=== PATIENT | female | born 1955 | race Caucasian/White ===

== ENCOUNTER 2018-01-08 08:53 | Day surgery (SDC) | payer OTHER ==
--- NOTE | 2018-01-05 11:48 | HP ---
DATE OF SURGERY: 01/08/2018 ANTICIPATED PROCEDURE: EGD and colonoscopy. HISTORY OF PRESENT ILLNESS: The patient presents for ten year follow up colonoscopic examination. She also has upper abdominal pain, some symptoms of reflux have not been evaluated and presents for both colonoscopy and EGD. PAST MEDICAL HISTORY: ALLERGIES: PER THE CHART. MEDICATIONS: Per the chart. PAST SURGICAL HISTORY: Previous cholecystectomy. SOCIAL HISTORY: Negative. FAMILY HISTORY: Negative. PHYSICAL EXAMINATION: VITAL SIGNS: Normal. CHEST: Clear. COR: Regular. ABDOMEN: No palpable organomegaly or mass. IMPRESSION: The patient has upper symptoms requiring EGD and a ten year follow up colonoscopy.
[~2018-01-08 08:53] MED LIST: Lactated Ringers 1,000 ML IV ONE; Lactated Ringers 1,000 ML IV SCH
[2018-01-08] MEDS ORDERED: SUBLIMAZE 100 MCG/2 ML IV ONE (08:54)
[2018-01-08] MEDS ORDERED: VERSED 5 MG/5 ML IV ONE (08:54)
[2018-01-08] MEDS ORDERED: DEMEROL 50 MG SDV IV ONE (08:54)
[2018-01-08] MEDS ORDERED: Lactated Ringers 1,000 ML IV ONE (12:26)
[2018-01-08 13:54] VITALS: O2SAT 100
--- NOTE | 2018-01-08 13:58 | OP ---
SURGERY DATE/TIME: 01/08/2018 1148 PREOPERATIVE DIAGNOSES: 1) Epigastric pain and nausea. 2) Screening lower exam with previous history of polyp. POSTOPERATIVE DIAGNOSES: 1) Epigastric pain and nausea. 2) Screening lower exam with previous history of polyp. PROCEDURES: 1) Colonoscopy complete to cecum with no mucosal lesions. 2) EGD with just very mild 1/3 gastroesophageal reflux disease. SURGEON: Jhonny Hernandez M.D. ANESTHESIA: IV sedation 15 minutes monitored. COMPLICATIONS: None. CONDITION: Stable. INDICATION: A patient with frequent nausea, epigastric discomfort. She had a scope about ten years ago and she had a polyp. She presents for screening today and evaluation of her upper system. DESCRIPTION OF PROCEDURE: IV sedation titrated. Oximeter kept over 90%. Scope introduced. The esophagus normal down gastroesophageal junction. There was some probably intermittent very mild esophagitis, none currently but there was a little after effect scarring. Fundus, body, antrum normal. Pylorus normal. Duodenal bulb normal. Second portion normal. Scope withdrawn and looped upon itself. No hiatal hernia. Scope withdrawn. The colonoscope is placed. Anal tone normal. Scope advanced over to the cecum. Base of the cecum, ileocecal valve, appendiceal orifice normal. Ascending, hepatic, transverse, splenic, descending, sigmoid, rectum, anus was normal. IMPRESSION: Normal examination. PLAN: Follow up in ten years. Findings discussed with the in the waiting room.
[2018-01-08 14:10] VITALS: BP 142/78; PULSE 78
== END 2018-01-08 14:15 | disposition home or self-care (01) ==
LOC: SDC 08:53
PROVIDERS: ATTEND Surgery
DX: R10.13 Epigastric pain (principal); Z86.010 Personal history of colon polyps; Z12.11 Encounter for screening for malignant neoplasm of colon; R11.0 Nausea
CPT/HCPCS: J2175; J2250; J3010

== ENCOUNTER 2019-05-27 06:51 | Day surgery (SDC) | payer OTHER ==
--- NOTE | 2019-05-24 10:20 | HP ---
DATE OF SURGERY: 05/27/2019 ANTICIPATED PROCEDURE: EGD. HISTORY OF PRESENT ILLNESS: A patient with epigastric pain and is markedly worse. She is requiring evaluation. She presents for EGD. PAST MEDICAL HISTORY: ALLERGIES: PER THE CHART. MEDICATIONS: Per the chart. PAST SURGICAL HISTORY: None recent. SOCIAL HISTORY: Negative. FAMILY HISTORY: Negative. REVIEW OF SYSTEMS: CVS: Negative. PULMONARY: Negative. GI: She does have a history of reflux disease. PHYSICAL EXAMINATION: VITAL SIGNS: Normal. CHEST: Clear. COR: Regular. ABDOMEN: Satisfactory. PLAN: EGD.
[~2019-05-27 06:51] MED LIST changes: -Lactated Ringers 1,000 ML IV ONE
[2019-05-27] MEDS ORDERED: Lactated Ringers 1,000 ML IV ONE (07:25)
[2019-05-27] MEDS ORDERED: DIPRIVAN 200 MG/20 ML IV ONE ×2 (09:22→09:33)
[2019-05-27 10:34] VITALS: O2SAT 95
[2019-05-27 10:53] VITALS: BP 157/93; PULSE 79
--- NOTE | 2019-05-27 11:10 | OP ---
SURGERY DATE/TIME: 05/27/2019 0921 PREOPERATIVE DIAGNOSES: 1) Abdominal pain. 2) Epigastric pain. POSTOPERATIVE DIAGNOSES: 1) Chronic gastroesophageal reflux disease. There is no acute activation at this time but it looks like there is some spasm and there has been some chronic disease but there is no acute inflammation or ulceration. The diameter widens out satisfactorily with insufflation. 2) The patient had three gastric polyps. PROCEDURE: EGD with cold polypectomy x3 and cold biopsy for MARGE-test x1. SURGEON: Jhonny Hernandez M.D. ANESTHESIA: MAC. COMPLICATIONS: None. CONDITION: Stable. INDICATION: A 64 year-old with abdominal pain, epigastric pain, not had an upper endoscopic examination. She had a colonoscopy some time ago. DESCRIPTION OF PROCEDURE: She was taken to endoscopy. Left lateral decubitus position. MAC sedation provided. The scope introduced. Pharyngoesophageal junction is normal. Esophagus is normal down to gastroesophageal junction. There has certainly been some old gastroesophageal reflux disease but there is nothing acute or active present. In the fundus there are polyps. Body and antrum satisfactory. [employer] biopsy for MARGE-test from the antrum. Duodenal bulb satisfactory. Second portion satisfactory. Scope looped upon itself. No hiatal hernia. Three polyps in the upper fundus were taken with cold biopsy forceps. The patient tolerated the procedure satisfactorily.
== END 2019-05-27 10:55 | disposition home or self-care (01) ==
LOC: SDC 06:51
PROVIDERS: ATTEND Surgery
DX: K21.9 Gastro-esophageal reflux disease without esophagitis (principal); R10.13 Epigastric pain; K22.4 Dyskinesia of esophagus; K31.7 Polyp of stomach and duodenum
CPT/HCPCS: 87081; 88305; J2704

== ENCOUNTER 2020-02-11 19:56 | Emergency (ER) | payer OTHER ==
[2020-02-11] MEDS ORDERED: NORCO 5/325 MG PO ONE (20:15)
[2020-02-11] MEDS ORDERED: BACIGUENT 30 GM TP STA (20:17)
--- NOTE | 2020-02-11 20:18 | ERPHSYRPT ---
- History of Present Illness Time Seen by Provider: 02/11/20 20:10 Source: patient Exam Limitations: no limitations Physician History: The patient is a 64-year-old [id number] female with a past medical history significant for hypertension and a documented Tdap in 2017 presents with a chief complaint of right elbow pain after mechanical fall that took place an estimated 30 minutes to an hour prior to arrival. She reportedly tripped and fell down some concrete steps resulted in injury. She denies loss of consciousness and since the fall, she is able to ambulate, specifically on her right lower extremity. In addition to pain to her right elbow she complained of some abrasions to the right lateral aspect of her leg in addition to the minor bleeding that resolved to the right thigh at a time she arrived to the emergency department. The pain is described as an aching pain and increases with palpation of the right elbow and flexion extension of the elbow as well as supination and pronation of the right hand. Her pain is primarily located over the radial head. She denies any numbness/paresthesias. The patient does not take any anticoagulants and denies any head injury or neck pain. Occurred: just prior to arrival Quality: constant Severity of Pain-Max: moderate Severity of Pain-Current: moderate Extremities Pain Location: elbow: right Modifying Factors: Improves With: movement Allergies/Adverse Reactions: Latex, Natural Rubber Allergy (Intermediate, Verified 02/11/20 20:05) Rash levofloxacin [From Levaquin] Allergy (Intermediate, Verified 02/11/20 20:05) Vomiting Penicillins Allergy (Intermediate, Verified 02/11/20 20:05) Rash Sulfa (Sulfonamide Antibiotics) Allergy (Intermediate, Verified 02/11/20 20:05) Vomiting shellfish derived Allergy (Verified 02/11/20 20:05) strawberry Allergy (Verified 02/11/20 20:05) azithromycin [From Zithromax Z-Tariq] Adverse Reaction (Intermediate, Verified 02/11/20 20:05) Vomiting cephalexin monohydrate [From Keflex] Adverse Reaction (Intermediate, Verified 02/11/20 20:05) Vomiting Home Medications: Raloxifene HCl 60 mg [Evista 60 MG] 60 mg PO UD 12/03/12 [History] Zolpidem Tartrate 5 mg [Ambien 5 MG Tablet] 5 mg PO HS 12/03/12 [History] Omeprazole 20 MG [Prilosec 20 mg] 20 mg PO DAILY PRN 12/29/17 [History] Vitamin B Complex 1 tab PO DAILY 12/29/17 [History] Alprazolam 0.25 mg [xanAX 0.25 MG] 0.25 mg PO DAILY 05/18/19 [History] Diltiazem HCl [Cardizem] 120 mg PO DAILY 05/18/19 [History] Losartan Potassium [Cozaar] 100 mg PO DAILY 05/18/19 [History] Metformin HCl 500 mg [Glucophage 500 MG] 500 mg PO BIDWM 05/18/19 [History] Potassium Chloride 20 meq PO DAILY 05/18/19 [History] Venlafaxine HCl 37.5 mg [Effexor 37.5 mg] 37.5 mg PO DAILY 05/18/19 [History] Hx Influenza Vaccination/Date Given: No Hx Pneumococcal Vaccination/Date Given: No Travel Risk - International Travel Have you traveled outside of the country in past 3 weeks: No - Coronavirus Screening Are you exhibiting any of the following symptoms?: No Close contact with a COVID-19 positive Pt in past 14-21 Days: No - Review of Systems Constitutional: No Symptoms Eyes: No Symptoms Ears, Nose, & Throat: No Symptoms Respiratory: No Symptoms Cardiac: No Symptoms Abdominal/Gastrointestinal: No Symptoms Musculoskeletal: Fall, Injury, Joint Pain, No Deformity Skin: Other (Abrasions) Neurological: No Symptoms Psychological: No Symptoms Endocrine: No Symptoms Hematologic/Lymphatic: No Symptoms Immunological/Allergic: No Symptoms All Other Systems: Reviewed and Negative - Past Medical History Pertinent Past Medical History: Yes Neurological History: No Pertinent History ENT History: No Pertinent History Cardiac History: Hypertension Respiratory History: No Pertinent History Endocrine Medical History: No Pertinent History Musculoskeletal History: Fractures GI Medical History: GERD History: No Pertinent History Psycho-Social History: No Pertinent History Female Reproductive Disorders: No Pertinent History Other Medical History: Avulsion < 10 years ago - Past Surgical History Past Surgical History: Yes Neuro Surgical History: No Pertinent History Cardiac: No Pertinent History Respiratory: No Pertinent History Gastrointestinal: Cholecystectomy Genitourinary: No Pertinent History Musculoskeletal: No Pertinent History Female Surgical History: Hysterectomy Other Surgical History: colonoscopy - Social History Smoking Status: Former smoker Exposure to second hand smoke: No Drug Use: none - Nursing Vital Signs Nursing Vital Signs: Initial Vital Signs Pulse Rate 90 02/11/20 19:57 Respiratory Rate 18 02/11/20 19:57 Blood Pressure 166/99 02/11/20 19:57 O2 Sat by Pulse Oximetry 100 02/11/20 19:57 Pain Scale Pain Intensity 5 - Physical Exam General Appearance: no apparent distress Eyes, Ears, Nose, Throat Exam: normal ENT inspection Neck Exam: normal inspection, non-tender, supple Cardiovascular/Respiratory Exam: chest non-tender, normal breath sounds, regular rate/rhythm, heart sounds normal, normal peripheral pulses (Radial pulse 2+ b ilaterally and capillary refill was brisk in all fingers of the hands) Abdominal Exam: non-tender Back Exam: normal inspection Shoulder Exam: normal inspection, non-tender, no evidence of injury, normal ROM, No asymmetry, No deformity, No pain, No soft tissue tenderness, No swelling Elbow/Forearm Exam: bone tenderness, pain, soft tissue tenderness (Tenderness noted to the R elbow specifically of the R radial head. No crepitus of deformity to the R elbow and pain with flexion and extension as well as pronation and supination. ), No ecchymosis Wrist Exam: normal inspection, non-tender, no evidence of injury, normal ROM, No abrasions, No deformity Hand Exam: normal inspection, non-tender, no evidence of injury, normal ROM, No abrasions, No deformity, No limited ROM, No nail injury, No soft tissue tenderness, No swelling Neuro/Tendon Exam: normal sensation, normal motor functions, No sensory deficit, No tendon function deficit Mental Status Exam: alert, oriented x 3, cooperative, other (GCS 15) Skin Exam: normal color, warm, dry, other (Superfical abrasion noted to the R thigh with evidence of venous bleeding that has resolved with surrounding contusion and abrasions noted to the lateral aspect of the R leg.), No rash, No petechiae, No jaundice, No cyanosis, No diaphoresis SpO2 Interpretation: normal O2 Delivery: Room Air Procedures - Splinting Location of Splint: Right Type of Splint: Other (Sling) Splint Applied By: ED Nurse Pre-Proc Neuro Vasc Exam: normal Post-Proc Neuro Vasc Exam: neurovascular intact - Course Nursing assessment & vital signs reviewed: Yes - Radiology Exams Elbow X-ray Interpretation: Interpreted by me, Reviewed by me, Other (Radial head/neck fracture, nondisplaced) Ordered Tests: Active Orders 24 hr Category Date Time Status Sling Application STAT Care 02/11/20 20:16 Completed Wound Care STAT Care 02/11/20 20:16 Completed ELBOW (MINIMUM 3 VIEWS) Stat Exams 02/11/20 20:14 Completed Medication Summary Discontinued Medications Generic Name Dose Route Start Last Admin Trade Name Dev PRN Reason Stop Dose Admin Hydrocodone Bitart/Acetaminophen 2 tab 02/11/20 20:15 02/11/20 20:21 [place] 5/325 Mg PO 02/11/20 20:16 2 tab STAT ONE Administration Hydrocodone Bitart/Acetaminophen Confirm 02/11/20 20:21 [place] 5/325 Mg Administered 02/11/20 20:22 Dose 2 tab .ROUTE .STK-MED ONE Bacitracin Zinc 1 gm 02/11/20 20:17 02/11/20 21:07 [place]ig[place] 30 Gm TP 02/11/20 20:18 1 gm ONCE STA Administration Bacitracin Zinc Confirm 02/11/20 20:20 [place]ig[place] Packet Administered 02/11/20 20:21 Dose 1 gm .ROUTE .STK-MED ONE - Progress Progress: improved Progress Note: 02/11/20 20:28 Toxic in appearance. The patient presents with a chief complaint of right elbow pain after mechanical fall. She has no evidence of head injury and she has tenderness mainly at the radial head aspect of the right elbow. I will go ahead and obtain an x-ray of the right elbow to rule out evidence of fracture and/or dislocation. I currently have a high suspicion for a nondisplaced fracture of the radial head at this time and if such is present she will be discharged to follow-up in the Ortho clinic as an outpatient and given a sling for immobilization and comfort. In the meantime, her wounds will be cleaned and bacitracin will be applied to the wound to the right thigh. It appears she had a Tdap in 2017 and does not need this updated. Counseled pt/family regarding: diagnosis, need for follow-up, rad results - Departure Departure Disposition: Home Clinical Impression: Fracture of radial neck, right, closed, Abrasion, right lower leg, initial encounter, Fall Condition: Stable Critical Care Time: No Referrals: NATACHA CR [Primary Care Provider] - ORTHO - FABIANA SABA NP [NON-STAFF PHY W/O PRIVILEGES] - Instructions: Radius Fracture, How to Use a Shoulder Sling Additional Instructions: Follow-up in the outpatient orthopedic clinic. This is a walk-in clinic and he can show up on scheduled at any time. Prescriptions: Hydrocodone/APAP 5-325 Tab^^^ [[place] 5-325 Tablet^^^] 1 - 2 tab PO Q6HPRN PRN #16 tablet MDD 6 PRN Reason: Pain Docusate Sodium 100 mg PO BID #60 capsule
[2020-02-11] MEDS ORDERED: BACIGUENT PACKET ONE (20:20)
[2020-02-11] MEDS ORDERED: NORCO 5/325 MG ONE (20:21)
[2020-02-11 21:15] VITALS: BP 150/88; PULSE 84
[2020-02-11 21:44] VITALS: O2SAT 96
--- NOTE | 2020-02-11 22:46 | XRAY ---
: Pain following fall. Comparison: None 3 view right elbow demonstrates tiny radial head cortical fracture, anterior lateral aspect. Small medial epicondyle heterotopic ossification either degenerative versus old injury. No other bony, articular, or soft tissue abnormalities.
== END 2020-02-11 21:48 | disposition home or self-care (01) ==
LOC: ED 19:56
DX: S52.131A Displaced fracture of neck of right radius, initial encounter for closed fracture (principal); S80.811A Abrasion, right lower leg, initial encounter; W01.198A Fall on same level from slipping, tripping and stumbling with subsequent striking against other object, initial encounter; Y93.9 Activity, unspecified; Y92.9 Unspecified place or not applicable; M25.521 Pain in right elbow; Z79.899 Other long term (current) drug therapy; I10 Essential (primary) hypertension
CPT/HCPCS: 73080; 99284; A9270-GY

== ENCOUNTER 2022-09-05 06:56 | Day surgery (SDC) | payer MEDICARE ==
--- NOTE | 2022-09-04 10:40 | HP ---
DATE OF SURGERY: 09/05/2022 HISTORY OF PRESENT ILLNESS: The patient is a 67-year-old woman presents for endoscopy. She complains of some hemorrhoids. She has been having some change in the bowel habits. She complains of some diarrhea and constipation. It looks like the patients last colonoscopy was about five years ago. PAST MEDICAL HISTORY: Hypertension, anxiety, depression, hyperlipidemia. PAST SURGICAL HISTORY: Cholecystectomy. Appendectomy. Hysterectomy. Bilateral tubal ligation. D&C. Lumpectomy. ALLERGIES: LEVAQUIN. PENICILLIN. SULFA. AZITHROMYCIN. CEPHALEXIN. LATEX. SHELLFISH. STRAWBERRY. MEDICATIONS: Vitamin C, vitamin D3, vitamin B, probiotic, Xanax, Effexor, aspirin, Ambien, losartan, carvedilol, amlodipine, Evista. FAMILY HISTORY: Alzheimer's. Lung cancer. Testicular cancer. SOCIAL HISTORY: Former smoker. Occasional alcohol. REVIEW OF SYSTEMS: CONSTITUTIONAL: Denies fever or chills. CHEST: Denies shortness of breath. CVS: Denies chest pain. ABDOMEN: Denies abdominal pain. PHYSICAL EXAMINATION: GENERAL: No acute distress. CHEST: Nonlabored. No shortness of breath. CVS: Regular rate and rhythm. ABDOMEN: Soft. IMPRESSION: Screening. PLAN: Colonoscopy with Dr. Jhonny Hernandez. As dictated by Leah Stern NP.
[2022-09-05] MEDS ORDERED: Lactated Ringers 1,000 ML IV SCH (07:30)
[2022-09-05] MEDS ORDERED: Lactated Ringers 1,000 ML IV ONE (07:40)
[2022-09-05] MEDS ORDERED: DIPRIVAN 200 MG/20 ML IV ONE (08:42)
[2022-09-05] MEDS ORDERED: Xylocaine-Mpf 2% 5 Ml Vial ONE (08:42)
[2022-09-05] MEDS ORDERED: Versed 2 MG/2 ML Injection ONE (08:43)
[2022-09-05] MEDS ORDERED: GlucaGen 1 MG ONE (09:20)
[2022-09-05 09:43] VITALS: O2SAT 971
[2022-09-05 09:54] VITALS: BP 148/93; PULSE 83
--- NOTE | 2022-09-05 14:05 | OP ---
SURGERY DATE/TIME: 09/05/2022 0912 PREOPERATIVE DIAGNOSIS: Five year follow up of polyp. POSTOPERATIVE DIAGNOSIS: A 6 mm mid sigmoid polyp. PROCEDURES: 1) Colonoscopy complete to cecum. 2) Hot polypectomy x1. SURGEON: Jhonny Hernandez M.D. ANESTHESIA: MAC. COMPLICATIONS: None. CONDITION: Stable. INDICATION: The patient presents for five year follow up. DESCRIPTION OF PROCEDURE: Taken to endoscopy. Left lateral decubitus position. Anal digital examination is satisfactory. Scope introduced. The scope advanced to the cecum. Base of the cecum, ileocecal valve and appendiceal stump were all present and normal. Coming back the ascending colon, hepatic, transverse, splenic, descending and the mid sigmoid a 6 mm polyp taken with hot biopsy forceps. Rectum and anus normal. IMPRESSION: A very wholesome quality of the colon. Length was satisfactory. General width was excellent. General character was excellent. PLAN: Five year follow up. Excellent prep was present.
== END 2022-09-05 09:55 | disposition home or self-care (01) ==
LOC: SDC 06:56
PROVIDERS: ATTEND Surgery
DX: Z09 Encounter for follow-up examination after completed treatment for conditions other than malignant neoplasm (principal); Z86.010 Personal history of colon polyps; K63.5 Polyp of colon; Z79.899 Other long term (current) drug therapy; Z80.1 Family history of malignant neoplasm of trachea, bronchus and lung
CPT/HCPCS: 82947; J1610; J2250; J2704

== ENCOUNTER 2024-06-07 17:35 | Emergency (ER) | payer MEDICARE ==
[2024-06-07 18:23] VITALS: PULSE 83; RESP 18; O2SAT 97
[2024-06-07 19:34] VITALS: BP 178/93
[2024-06-07] MEDS: Vibramycin 100 MG PO ONE (19:53)
[2024-06-07] MEDS ORDERED: Vibramycin 100 MG ONE (19:53)
--- NOTE | 2024-06-07 19:57 | ERPHSYRPT ---
- History of Present Illness Time Seen by Provider: 06/07/24 19:15 Source: patient Exam Limitations: no limitations Patient Subjective Stated Complaint: C/O laceration to second digit of right hand. States she cut herself with her dog grooming scissors right before coming into the ER this evening. Triage Nursing Assessment: Patient ambulated back to ER without difficulties. She is alert and oriented. Laceration is present to right hand, tip of second digit. No active bleeding. Measures 0.5cm. Physician History: This is a left handed 69-year-old white female patient of Dr. Hoover who arrives by private vehicle with a right second digit tip of finger skin laceration/flap. This occurred prior to arrival. She was using dog grooming scissors. She denies pain. Her tetanus status is up-to-date. Patient has a h istory gastroesophageal reflux disease, hypertension, anxiety and depression. Patient also would like to have antibiotics. Specifically, she can take doxycycline. Timing/Duration: today Severity: mild Location: hands (Right hand tip of second digit) Allergies/Adverse Reactions: Latex, Natural Rubber Allergy (Intermediate, Verified 06/07/24 18:16) Rash levofloxacin [From Levaquin] Allergy (Intermediate, Verified 06/07/24 18:16) Vomiting Penicillins Allergy (Intermediate, Verified 06/07/24 18:16) Rash Sulfa (Sulfonamide Antibiotics) Allergy (Intermediate, Verified 06/07/24 18:16) Vomiting shellfish derived Allergy (Verified 06/07/24 18:16) strawberry Allergy (Verified 06/07/24 18:16) azithromycin [From Zithromax Z-Tariq] Adverse Reaction (Intermediate, Verified 06/07/24 18:16) Vomiting cephalexin monohydrate [From Keflex] Adverse Reaction (Intermediate, Verified 06/07/24 18:16) Vomiting Home Medications: Raloxifene HCl 60 mg [Evista 60 MG] 60 mg PO UD 12/03/12 [History] Zolpidem Tartrate 5 mg [Ambien 5 MG Tablet] 10 mg PO HS 12/03/12 [History] Omeprazole 20 MG [Prilosec 20 mg] 40 mg PO DAILY PRN 12/29/17 [History] ALPRAZolam 0.25 MG [xanAX 0.25 MG] 0.25 mg PO DAILY PRN PRN 05/18/19 [History] Losartan Potassium [Cozaar] 100 mg PO DAILY 05/18/19 [History] Potassium Chloride 20 meq PO DAILY 05/18/19 [History] Venlafaxine HCl 37.5 mg [Effexor 37.5 mg] 75 mg PO DAILY 05/18/19 [History] Amlodipine Besylate 5 mg [Norvasc 5 mg] 2.5 mg PO DAILY 08/12/22 [History] Carvedilol 12.5 mg [Coreg 12.5 mg] 12.5 mg PO BID 08/12/22 [History] Fluticasone Propionate [Flonase NASAL] 1 spray INTRANASAL UD 08/12/22 [ History] Semaglutide [Ozempic] 50 mg IM WEEKLY 08/12/22 [History] Hx Tetanus, Diphtheria Vaccination/Date Given: Yes Hx Influenza Vaccination/Date Given: No Hx Pneumococcal Vaccination/Date Given: No Immunizations Up to Date: Yes Travel Risk - International Travel Have you traveled outside of the country in past 3 weeks: No - Emerging Infectious Disease Are you exhibiting symptoms associated with any current EIDs: No - Review of Systems Constitutional: No Symptoms Eyes: No Symptoms Ears, Nose, & Throat: No Symptoms Respiratory: No Symptoms Cardiac: No Symptoms Abdominal/Gastrointestinal: No Symptoms Genitourinary Symptoms: No Symptoms Musculoskeletal: No Symptoms Skin: Other (Small flap/laceration right hand second digit tip of finger) Neurological: No Symptoms Psychological: No Symptoms Endocrine: No Symptoms Hematologic/Lymphatic: No Symptoms Immunological/Allergic: No Symptoms All Other Systems: Reviewed and Negative - Past Medical History Pertinent Past Medical History: Yes Neurological History: No Pertinent History ENT History: No Pertinent History Cardiac History: Hypertension Respiratory History: Sleep Apnea Endocrine Medical History: No Pertinent History Musculoskeletal History: Fractures GI Medical History: GERD History: No Pertinent History Psycho-Social History: Anxiety, Other Female Reproductive Disorders: No Pertinent History Other Medical History: Avulsion, cpap at night - Past Surgical History Past Surgical History: Yes Neuro Surgical History: No Pertinent History Cardiac: No Pertinent History Respiratory: No Pertinent History Gastrointestinal: Cholecystectomy Genitourinary: No Pertinent History Musculoskeletal: Orthopedic Surgery Female Surgical History: Hysterectomy, Lumpectomy Other Surgical History: colonoscopy, acl repair r knee 2020--[facility] - Social History Smoking Status: Former smoker Exposure to second hand smoke: No Drug Use: none Patient Lives Alone: No - Social Determinants of Health Will the patient participate in the screening: Yes Do you worry about a steady place to live?: No Do you have any problems with any of the following?: No known problems In the past 12 months,have you had to go without utilities?: No Transportation Issues: No Has anyone in your support network made you feel unsafe?: No Have you or anyone in your house had to go without enough: No - Nursing Vital Signs Nursing Vital Signs: Initial Vital Signs Pulse Rate 83 06/07/24 18:16 Respiratory Rate 18 06/07/24 18:16 Blood Pressure 168/104 06/07/24 18:16 O2 Sat by Pulse Oximetry 97 06/07/24 18:16 Pain Scale Pain Intensity 8 - Physical Exam General Appearance: no apparent distress, alert Eye Exam: PERRL/EOMI, eyes nml inspection Ears, Nose, Throat Exam: normal ENT inspection, moist mucous membranes Neck Exam: normal inspection, non-tender, supple, full range of motion Respiratory Exam: airway intact, No chest tenderness, No respiratory distress Gastrointestinal/Abdomen Exam: No tenderness Pelvic Exam: not done Rectal Exam: not done Back Exam: normal inspection, normal range of motion, No CVA tenderness, No vertebral tenderness Extremity Exam: normal range of motion, pelvis stable, lacerations (1/2 cm skin flap/laceration right hand tip of second digit) Neurologic Exam: alert, oriented x 3, cooperative, associate store manager II-XII nml as tested, normal mood/affect, nml cerebellar function, nml station & gait, sensation nml Skin Exam: normal color, warm, dry, laceration (See above extremity exam section) Lymphatic Exam: No adenopathy SpO2 Interpretation: normal SpO2: 97 O2 Delivery: Room Air Procedures - Laceration/Wound Repair Right Distal Finger Time of Procedure: 19:20 Wound Location: Right, hand (Right hand tip of second digit) Wound Length (cm): 0.5 Wound's Depth, Shape: superficial, linear Wound Explored: clean (Wound was explored to the base in a bloodless field and no foreign body is noted) Irrigated: Yes Hibiclens Prep: Yes Wound Repaired With: Steri-strips, Dermabond Progress: 06/07/24 19:56 No complications. Patient tolerated the procedure well. Ordered Tests: Medication Summary Discontinued Medications Generic Name Dose Route Start Last Admin Trade Name Dev PRN Reason Stop Dose Admin Doxycycline Hyclate 100 mg 06/07/24 19:50 Doxycycline Hyclate 100 Mg Tablet PO 06/07/24 19:51 STAT ONE - Progress Progress Note: 06/07/24 19:56 My medical decision making and the assignment of low complexity to this patient's medical issue today is based on review of the patient's past medical history, review the patient's medication list, reviewed patient drug allergy list, history present illness and physical findings on examination. No laboratory radiographic studies are necessary in this patient's workup today. Differential diagnosis includes but is not limited to skin laceration, flap laceration Counseled pt/family regarding: diagnosis Medical Desision Making - Diagnostic Testing Diagnostic test were ordered, analyzed, and reviewed by me: No - Risk of complications Minimal Risk: Minimal risk of morbidity - Departure Departure Disposition: Home Clinical Impression: Laceration of right index finger Condition: Stable Critical Care Time: No Referrals: PABLO HOOVER DO [Primary Care Provider] - Follow up/PCP as directed Additional Instructions: Leave the current dressing in place. Remove top dressing in 24 hours. Leave the Steri-Strips in place. May rinse the site off at least once a day with soapy water. Trim the Steri-Strips as they curl up in the next 5 to 7 days. Take your antibiotics as prescribed. Prescriptions: Doxycycline Hyclate 100 mg [Vibramycin 100 MG] 100 mg PO BID #10 tab
== END 2024-06-07 20:05 | disposition home or self-care (01) ==
LOC: ED 17:35
DX: S61.210A Laceration without foreign body of right index finger without damage to nail, initial encounter (principal)
CPT/HCPCS: 12001; 99282; G0168; 99281; A9270-GY